=== PATIENT | male | born 1990 | race Caucasian/White ===

== ENCOUNTER 2019-12-06 09:59 | Emergency (ER) | payer OTHER ==
[2019-12-06 10:31] LABS: RAPID STREP SCREEN POSITIVE (Negative)
[2019-12-06] MEDS ORDERED: AMOXICILLIN 250 MG CAPSULE PO STA (10:37)
[2019-12-06] MEDS ORDERED: SODIUM CHLORIDE 0.9% 1,000 ML IV STA (10:57)
[2019-12-06] MEDS ORDERED: DEXAMETHASONE 10 MG/ML VIAL IV STA (10:58)
--- NOTE | 2019-12-06 11:41 | ED Physician Documentation ---
History of Present Illness - Stated complaint Stated Complaint: SORE THROAT, RIVERA, BODY ACHES - Chief complaint Chief Complaint: Ext Problem - History obtained from History obtained from: Patient - Additonal information Additional information: Patient comes emergency department complaining of sore throat, nausea, body aches, and a feeling of fever and chills. He states it hurts very bad to swallow. Symptoms have been going on for about the last 3 days. He has not had any known sick contacts, though the patient does note a history of strep previously. He is otherwise healthy. He states he has been drinking a fair amount of water, but is still concerned about dehydration. No other complaints at this time. Review of Systems Ten Systems: 10 systems reviewed and negative Constitutional: reports: Fever, Chills Eyes: reports: Reviewed and negative Ears: reports: Reviewed and negative Nose: reports: Reviewed and negative Throat: reports: Sore throat Cardiac: reports: Reviewed and negative Respiratory: denies: Cough GI: reports: Nausea : reports: Reviewed and negative Skin: reports: Reviewed and negative Musculoskeletal: reports: Reviewed and negative Neurologic: reports: Reviewed and negative Psychiatric: reports: Reviewed and negative Endocrine: reports: Reviewed and negative Immunocompromised: reports: Reviewed and negative PD PAST MEDICAL HISTORY - Past Medical History Past Medical History: No Cardiovascular: None Respiratory: None Neuro: None Endocrine/Autoimmune: None GI: None : None HEENT: None Psych: None Musculoskeletal: None Derm: None - Past Surgical History Past Surgical History: No - Present Medications Home Medications: Ambulatory Orders Medication Instructions Recorded Confirmed HYDROcod/ACETAM 5/325 [[place] 5/325] 1 - 2 ea PO Q6H PRN #14 tablet 10/16/19 Penicillin V Potassium 500 mg PO Q6HR #40 tablet 10/16/19 Amoxicillin 500 mg PO TID 7 Days #21 capsule 12/06/19 predniSONE [Prednisone] 60 mg PO DAILY #12 tablet 12/06/19 - Allergies Allergies/Adverse Reactions: Allergies Allergy/AdvReac Type Severity Reaction Status Date / Time NSAIDS (Non-Steroidal AdvReac Unknown Verified 12/06/19 10:14 Anti-Inflamma - Social History Does the pt smoke?: No Smoking Status: Never smoker Does the pt drink ETOH?: Yes Does the pt have substance abuse?: No - Immunizations Immunizations are current?: Yes - POLST Patient has POLST: No PD ED PE NORMAL - Vitals Vital signs reviewed: Yes - General General: Alert and oriented X 3, No acute distress - HEENT HEENT: Atraumatic, PERRL, EOMI, Moist mucous membranes, Other (Patient has erythema bilateral tonsils with exudates.) - Neck Neck: Supple, no meningeal sign, No adenopathy - Cardiac Cardiac: RRR, No murmur, Strong equal pulses - Respiratory Respiratory: No respiratory distress, Clear bilaterally - Abdomen Abdomen: Soft, Non tender, Non distended - Derm Derm: Normal color, Warm and dry, No rash - Extremities Extremities: No deformity - Neuro Neuro: Alert and oriented X 3 - Psych Psych: Normal mood, Normal affect Results - Vitals Vitals: Vital Signs - 24 hr 12/06/19 10:14 Temperature 36.9 C Heart Rate 97 Respiratory 18 Rate Blood Pressure 136/90 H O2 Saturation 97 Oxygen O2 Source Room air - Labs Labs: Laboratory Tests 12/06/19 10:20 Group A Strep Rapid POSITIVE H PD MEDICAL DECISION MAKING - ED course Complexity details: reviewed results, re-evaluated patient, considered differential, d/w patient ED course: Patient strep screen was found to be positive. He was given a dose of amoxicillin and requested IV fluids. He was given 1 L bolus point in normal saline as well as an IV dose of Decadron. We have discussed the usual indications for return, as well as symptomatic management at home. Departure - Departure Disposition: 01 Home, Self Care Clinical Impression: Strep pharyngitis Condition: Stable Instructions: ED Strep Pharyngitis Conf Prescriptions: Amoxicillin 500 mg PO TID 7 Days #21 capsule predniSONE [Prednisone] 60 mg PO DAILY #12 tablet
[2019-12-06 12:08] VITALS: BP 142/87
== END 2019-12-06 12:08 | disposition home or self-care (01) ==
LOC: ED 09:59
DX: J02.0 Streptococcal pharyngitis (principal)
CPT/HCPCS: 87430; 96374; 99284; A9270

== ENCOUNTER 2020-05-03 19:01 | Emergency (ER) | payer OTHER ==
[2020-05-03 19:19] VITALS: BP 160/100
[2020-05-03 19:32] LABS: BASOPHILS % (AUTO) 0.4 %; EOSINOPHILS # (AUTO) 0.1 10^3/uL (0.0-0.7); EOSINOPHILS % (AUTO) 0.8 %; HGB - HEMOGLOBIN 14.9 g/dL (14.0-18.0); LYMPHOCYTES # (AUTO) 3.8 10^3/uL (1.5-3.5); LYMPHOCYTES % (AUTO) 42.1 %; MEAN CORPUSCULAR HEMOGLOBIN 29.4 pg (27.0-31.0); MEAN CORPUSCULAR HGB CONC 34.3 g/dL (32.0-36.0); MEAN CORPUSCULAR VOLUME 85.8 fL (80.0-94.0); MEAN PLATELET VOLUME 8.9 fL (7.4-11.4); MONOCYTES # (AUTO) 0.4 10^3/uL (0.0-1.0); MONOCYTES % (AUTO) 4.1 %; NEUTROPHILS # (AUTO) 4.7 10^3/uL (1.5-6.6); NEUTROPHILS % (AUTO) 52.4 %; PLT - PLATELET COUNT 255 10^3/uL (130-450); RED BLOOD COUNT 5.06 10^6/uL (4.70-6.10); RED CELL DISTRIBUTION WIDTH 12.6 % (12.0-15.0); WHITE BLOOD COUNT 9.1 x10^3/uL (4.8-10.8)
[2020-05-03 19:46] LABS: ALBUMIN 4.8 g/dL (3.2-5.5); ALBUMIN/GLOBULIN RATIO 1.5 (1.0-2.2); BILIRUBIN,TOTAL 0.6 mg/dL (0.2-1.0); CALCIUM 9.7 mg/dL (8.5-10.3); CREATININE 1.1 mg/dL (0.6-1.2)
--- NOTE | 2020-05-03 20:01 | ED Physician Documentation ---
History of Present Illness - Stated complaint Stated Complaint: rectal bleeding - Chief complaint Chief Complaint: Wound - Additonal information Additional information: 29-year-old male who is a member of [employer] presents the emergency department for concerns of rectal bleeding. He states that he has had a swelling near his rectum for the last few days and after doing some research he found that it is likely a hemorrhoid. It has been tender and he has been doing a lot of heavy lifting. Today after using the facilities it ruptured and he had bleeding. He spoke with his blueprint machine operator and then the flight surgeon who advised him to come to the emergency department. He reports that he eats a lot of fruits and vegetables and takes a fiber supplement and that he never strains when having a bowel movement. He denies constipation. He has had no fevers. Denies insertive or penetrative rectal sex. He has been trying sitz bath's over the last week to help with the swelling but it has not fixed it. Review of Systems Constitutional: reports: Reviewed and negative Ears: reports: Reviewed and negative Nose: reports: Reviewed and negative Throat: reports: Reviewed and negative Cardiac: reports: Reviewed and negative Respiratory: reports: Reviewed and negative GI: reports: Other (Rectal bleeding external hemorrhoid.) : reports: Reviewed and negative Skin: reports: Reviewed and negative Musculoskeletal: reports: Reviewed and negative PD PAST MEDICAL HISTORY - Past Medical History Cardiovascular: None Respiratory: None Neuro: None Endocrine/Autoimmune: None GI: None : None HEENT: None Psych: None Musculoskeletal: None Derm: None - Past Surgical History Past Surgical History: No - Present Medications Home Medications: Ambulatory Orders Medication Instructions Recorded Confirmed Hydrocortisone [Anusol-Hc] 30 gm RC BID PRN #30 gm 05/03/20 - Allergies Allergies/Adverse Reactions: Allergies Allergy/AdvReac Type Severity Reaction Status Date / Time NSAIDS (Non-Steroidal AdvReac Unknown Verified 05/03/20 19:04 Anti-Inflamma - Social History Does the pt smoke?: No Smoking Status: Never smoker Does the pt drink ETOH?: Yes Does the pt have substance abuse?: No - Immunizations Immunizations are current?: Yes - POLST Patient has POLST: No PD ED PE EXPANDED - General General: Alert, No acute distress - Rectal Rectal: Hemorrhoid (Patient has an external thrombosed hemorrhoid that has ruptured on its own and is nearly fully drained. No surrounding erythema or fluctuance.) Results - Vitals Vitals: Vital Signs - 24 hr 05/03/20 05/03/20 19:05 19:19 Temperature 37.2 C Heart Rate 84 84 Respiratory 18 18 Rate Blood Pressure 147/84 H 160/100 H O2 Saturation 96 96 Oxygen O2 Source Room air - Labs Labs: Laboratory Tests 05/03/20 05/03/20 19:26 19:26 WBC 9.1 RBC 5.06 Hgb 14.9 Hct 43.4 MCV 85.8 MCH 29.4 MCHC 34.3 RDW 12.6 Plt Count 255 MPV 8.9 Neut # (Auto) 4.7 Lymph # (Auto) 3.8 H [place] # (Auto) 0.4 Eos # (Auto) 0.1 Baso # (Auto) 0.0 Absolute Nucleated RBC 0.00 Nucleated RBC % 0.0 Sodium 140 Potassium 3.8 Chloride 101 Carbon Dioxide 27 Anion Gap 12.0 BUN 23 H Creatinine 1.1 Estimated GFR (MDRD) 80 L Glucose 89 Calcium 9.7 Total Bilirubin 0.6 AST 27 ALT 23 Alkaline Phosphatase 48 Total Protein 8.0 Albumin 4.8 Globulin 3.2 Albumin/Globulin Ratio 1.5 Lipase 23 PD MEDICAL DECISION MAKING - ED course Complexity details: re-evaluated patient, considered differential, d/w patient ED course: 29-year-old male who is in the [employer] presents with rectal bleeding. On exam he does have a thrombosed external hemorrhoid that have spontaneously ruptured and is now fully resolved his pain is markedly better. I will recommend that he continue the warm sitz baths. I will also prescribe a hard hydrocortisone ointment. He is advised to avoid heavy lifting. Return precautions discussed for fevers, severe rectal bleeding or if the symptoms do not improve. Departure - Departure Disposition: 01 Home, Self Care Clinical Impression: Thrombosed external hemorrhoid Condition: Stable Record reviewed to determine appropriate education?: Yes Instructions: Anusol Ointment, ED Hemorrhoids Prescriptions: Hydrocortisone [Anusol-Hc] 30 gm RC BID PRN #30 gm PRN Reason: pain Comments: You have a thrombosed external hemorrhoid that has ruptured on its own and is now nearly fully drained. No other intervention is necessary today in the emergency department. I do recommend that you continue to do warm sits baths twice a day this will help with inflammation and swelling. Following the sitz baths or after bowel movements I recommend that you apply the Anusol cream. This has a steroid in it and will help shrink the bleeding vessels and provide pain relief. Please make sure that you are not straining to have bowel movements so increase your water intake and fiber. If at any point you have worsening pain, fevers severe rectal bleeding or the feel the symptoms are not improved please return to the emergency department
== END 2020-05-03 20:13 | disposition home or self-care (01) ==
LOC: ED 19:01
DX: K64.5 Perianal venous thrombosis (principal)
CPT/HCPCS: 36415; 80053; 83690; 85025; 99283